=== PATIENT | male | born 1970 | race Caucasian/White ===

== ENCOUNTER 2019-03-18 15:13 | Outpatient (REF) | payer OTHER, SELFPAY ==
[2019-03-18 20:07] LABS: HCT 44.2 % (40.0-50.0); HGB 14.9 g/dL (13.5-17.5); Mean Corp. HGB Concentration 33.7 g/dL (32.0-36.0); Mean Corpuscular Volume 88.9 fL (80-95); Platelet Count 368 x1000/uL (130-400); RBC 4.97 m/cumm (4.50-6.00); RBC Distribution Width 13.6 % (11.8-14.1); White Blood Cell Count 5.52 k/cumm (4.4-10.8)
[2019-03-18 20:18] LABS: PHENYTOIN (DILANTIN) 9.8 ug/mL (10.0-20.0)
[2019-03-18 20:28] LABS: ALT 32 U/L (12-78); AST 26 U/L (15-37); Albumin 3.9 g/dL (3.4-5.0); Alkaline Phosphatase 161 U/L (46-116); Anion Gap 9.2 mmol/L (3-11); BUN 9 mg/dL (7-18); Bilirubin, Total 0.2 mg/dL (0.2-1.0); CO2 27.8 mmol/L (21.0-32.0); CREATININE 0.73 mg/dL (0.70-1.30); Calcium 9.3 mg/dL (8.5-10.1); Chloride 102 mmol/L (98-107); Glucose 98 mg/dL (70-100); Potassium 4.5 mmol/L (3.5-5.1); Sodium 139 mmol/L (136-145); Total Protein 7.3 g/dL (6.4-8.2)
== END 2019-03-18 15:33 ==
LOC: NCHCN 15:13
PROVIDERS: PCP Internal Medicine; Visit Provider Internal Medicine
DX: Z00.00 Encounter for general adult medical examination without abnormal findings (principal); G40.909 Epilepsy, unspecified, not intractable, without status epilepticus; Z51.81 Encounter for therapeutic drug level monitoring; Z79.899 Other long term (current) drug therapy
CPT/HCPCS: 80053; 85027; 80185

== ENCOUNTER 2019-10-30 09:47 | Outpatient (REF) | payer OTHER, SELFPAY ==
[2019-11-01 14:07] LABS: HSV Type 1 Ab, IgG Positive (Negative); HSV Type 2 Ab, IgG Equivocal (Negative)
== END 2019-10-30 10:07 ==
LOC: NCHCN 09:47
PROVIDERS: PCP Internal Medicine; Visit Provider Physician Assistant
DX: B00.9 Herpesviral infection, unspecified (principal); Z11.3 Encounter for screening for infections with a predominantly sexual mode of transmission
CPT/HCPCS: 86695; 86696

== ENCOUNTER 2020-05-28 17:26 | Outpatient (REF) | payer OTHER, SELFPAY ==
[2020-05-28 19:26] LABS: HCT 42.5 % (40.0-50.0); HGB 14.6 g/dL (13.5-17.5); Mean Corp. HGB Concentration 34.4 g/dL (32.0-36.0); Mean Corpuscular Hemoglobin 31.1 pg (27.0-33.0); Mean Corpuscular Volume 90.4 fL (80-95); Mean Platelet Volume 10.2 fL (8.0-11.0); Platelet Count 292 x1000/uL (130-400); RBC Distribution Width 13.4 % (11.8-14.1); White Blood Cell Count 6.26 k/cumm (4.4-10.8)
[2020-05-28 19:44] LABS: ALT 30 U/L (16-63); AST 22 U/L (15-37); Albumin 4.2 g/dL (3.4-5.0); Alkaline Phosphatase 107 U/L (46-116); Bilirubin, Direct 0.11 mg/dL (0.00-0.20); Bilirubin, Total 0.3 mg/dL (0.2-1.0); Total Protein 7.1 g/dL (6.4-8.2)
== END 2020-05-28 17:46 ==
LOC: NCHCN 17:26
PROVIDERS: PCP Internal Medicine; Visit Provider Internal Medicine
DX: G40.909 Epilepsy, unspecified, not intractable, without status epilepticus (principal); Z00.00 Encounter for general adult medical examination without abnormal findings; Z51.81 Encounter for therapeutic drug level monitoring
CPT/HCPCS: 80076; 85027; 80185

== ENCOUNTER 2021-06-08 09:14 | Outpatient (CLI) | payer OTHER, SELFPAY ==
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
== END 2021-06-08 09:34 ==
PROVIDERS: PCP Internal Medicine; Visit Provider Nurse Practitioner Family
DX: M79.641 Pain in right hand (principal); S67.21XA Crushing injury of right hand, initial encounter; S62.336A Displaced fracture of neck of fifth metacarpal bone, right hand, initial encounter for closed fracture
CPT/HCPCS: 73130

== ENCOUNTER 2021-06-15 07:36 | Outpatient (CLI) | payer OTHER, SELFPAY ==
--- NOTE | 2021-06-15 13:00 | DI.RAD_ITS ---
Exam(s) XR HAND RT COMPLETE EXAM: XR HAND RT COMPLETE CLINICAL HISTORY: follow up fracture. TECHNIQUE: 2D digital imaging was performed. COMPARISON: CR XR HAND RT COMPLETE from 06/08/2021 FINDINGS: BONES: There has been no change in alignment of the fracture involving the right 5th metacarpal bone. No bony destructive lesion is seen. JOINTS: No dislocation present. SOFT TISSUE: Normal. IMPRESSION: Stable right 5th metacarpal fracture. DATA REPOSITORY: RADIATION DOSE DELIVERED:
== END 2021-06-15 07:37 | disposition home or self-care (01) ==
PROVIDERS: PCP Internal Medicine; Visit Provider Physician Assistant Surgical
DX: S62.336D Displaced fracture of neck of fifth metacarpal bone, right hand, subsequent encounter for fracture with routine healing (principal)
CPT/HCPCS: 73130

== ENCOUNTER 2021-07-12 09:46 | Outpatient (CLI) | payer OTHER, SELFPAY ==
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
== END 2021-07-12 09:47 | disposition home or self-care (01) ==
LOC: DIORS 09:46
PROVIDERS: PCP Internal Medicine; Visit Provider Physician Assistant
DX: S62.336D Displaced fracture of neck of fifth metacarpal bone, right hand, subsequent encounter for fracture with routine healing (principal); X58.XXXD Exposure to other specified factors, subsequent encounter
CPT/HCPCS: 73130

== ENCOUNTER 2021-08-23 10:28 | Outpatient (CLI) | payer OTHER, SELFPAY ==
--- NOTE | 2021-08-23 10:15 | DI.RAD_ITS ---
Exam(s) XR HAND RT COMPLETE EXAM: XR HAND RT COMPLETE INDICATION: right boxers fracture. COMPARISON: CR XR HAND RT COMPLETE from 07/12/2021 TECHNIQUE: 2D digital imaging was performed. FINDINGS: There has been continued healing of the 5th metacarpal fracture. The alignment is unchanged. No new abnormalities are seen. DATA REPOSITORY: RADIATION DOSE DELIVERED:
== END 2021-08-23 10:29 | disposition home or self-care (01) ==
LOC: DIORS 10:28
PROVIDERS: PCP Internal Medicine; Referring Provider Internal Medicine; Visit Provider Physician Assistant
DX: S62.336D Displaced fracture of neck of fifth metacarpal bone, right hand, subsequent encounter for fracture with routine healing (principal)
CPT/HCPCS: 73130

== ENCOUNTER 2021-08-23 19:30 | Outpatient (REF) | payer OTHER, SELFPAY ==
[2021-08-23 20:27] LABS: Abs Immature Grans 0.02 10^3/uL (0.0-0.06); Absolute Basophil Count 0.04 10^3/uL (0.0-0.2); Absolute Eosinophil Count 0.11 10^3/uL (0.0-0.7); Absolute Lymphocyte Count 1.88 10^3/uL (1.2-3.4); Absolute Monocyte Count 0.47 10^3/uL (0.1-0.8); Basophils % 0.6; Eosinophils % 1.8; HCT 43.9 % (40.0-50.0); HGB 15.1 g/dL (13.5-17.5); Immature Grans % 0.3; Lymphocytes % 30.2; MCH 31.1 pg (27.0-33.0); MCHC 34.4 % (32.0-36.0); MCV 90.3 fL (80-95); MPV 10.1 fL (8.0-11.0); Monocytes % 7.6; Neutrophils % 59.5; Nucleated RBC 0 %; Platelet Count 343 10^3/uL (130-400); RBC 4.86 10^6/uL (4.36-5.78); RDW 12.9 % (11.8-14.1); RDW-SD 43.1 fL; WBC 6.22 10^3/uL (4.4-10.8)
[2021-08-23 20:50] LABS: PHENYTOIN (DILANTIN) 14.6 ug/mL (10.0-20.0)
[2021-08-23 20:54] LABS: ALT 35 U/L (16-63); AST 19 U/L (15-37); Albumin 4.3 g/dL (3.4-5.0); Alkaline Phosphatase 110 U/L (46-116); Anion Gap 7.1 mmol/L (3-11); BUN 10 mg/dL (7-18); Bilirubin, Total 0.2 mg/dL (0.2-1.0); CO2 28.9 mmol/L (21.0-32.0); CREATININE 0.7 mg/dL (0.70-1.30); Calcium 8.6 mg/dL (8.5-10.1); Chloride 105 mmol/L (98-107); Glucose 78 mg/dL (74-106); Potassium 4.4 mmol/L (3.5-5.1); Sodium 141 mmol/L (136-145); Total Protein 7.4 g/dL (6.4-8.2)
== END 2021-08-23 19:31 | disposition home or self-care (01) ==
LOC: NCHCN 19:30
PROVIDERS: PCP Internal Medicine; Visit Provider Internal Medicine
DX: Z00.00 Encounter for general adult medical examination without abnormal findings (principal); G40.909 Epilepsy, unspecified, not intractable, without status epilepticus
CPT/HCPCS: 80053; 80185; 85025

== ENCOUNTER 2022-10-19 16:30 | Outpatient (REF) | payer OTHER, SELFPAY ==
[2022-10-19 19:58] LABS: Abs Immature Grans 0.02 10^3/uL (0.0-0.06); Absolute Basophil Count 0.04 10^3/uL (0.0-0.2); Absolute Eosinophil Count 0.09 10^3/uL (0.0-0.7); Absolute Lymphocyte Count 1.82 10^3/uL (1.2-3.4); Absolute Monocyte Count 0.52 10^3/uL (0.1-0.8); Absolute Neutrophil Count 5.46 10^3/uL (1.2-6.7); Basophils % 0.5; Eosinophils % 1.1; HCT 42.8 % (40.0-50.0); HGB 14.9 g/dL (13.5-17.5); Immature Grans % 0.3; Lymphocytes % 22.9; MCH 31.2 pg (27.0-33.0); MCHC 34.8 % (32.0-36.0); MCV 90 fL (80-95); MPV 9.7 fL (8.0-11.0); Monocytes % 6.5; Neutrophils % 68.7; Platelet Count 344 10^3/uL (130-400); RBC 4.77 10^6/uL (4.36-5.78); RDW 12.5 % (11.8-14.1); RDW-SD 41.4 fL; WBC 7.95 10^3/uL (4.4-10.8)
[2022-10-19 20:26] LABS: ALT 33 U/L (16-63); AST 23 U/L (15-37); Albumin 4.3 g/dL (3.4-5.0); Alkaline Phosphatase 108 U/L (46-116); Anion Gap 6.4 mmol/L (3-11); BUN 17 mg/dL (7-18); Bilirubin, Total 0.3 mg/dL (0.2-1.0); CO2 29.6 mmol/L (21.0-32.0); CREATININE 0.8 mg/dL (0.70-1.30); Calcium 8.9 mg/dL (8.5-10.1); Chloride 102 mmol/L (98-107); Estimated GFR 105.17 (mL/min/1.73m2); Glucose 130 mg/dL (74-106); Potassium 3.8 mmol/L (3.5-5.1); Sodium 138 mmol/L (136-145); Total Protein 7.6 g/dL (6.4-8.2)
[2022-10-19 20:32] LABS: PHENYTOIN (DILANTIN) 12.9 ug/mL (10.0-20.0)
== END 2022-10-19 16:31 | disposition home or self-care (01) ==
LOC: NCHCN 16:30
PROVIDERS: PCP Internal Medicine; Visit Provider Internal Medicine
DX: R63.5 Abnormal weight gain (principal); Z00.00 Encounter for general adult medical examination without abnormal findings; G40.909 Epilepsy, unspecified, not intractable, without status epilepticus; Z79.899 Other long term (current) drug therapy; Z51.81 Encounter for therapeutic drug level monitoring
CPT/HCPCS: 80053; 80185; 85025

== ENCOUNTER 2023-11-22 16:03 | Outpatient (REF) | payer OTHER, SELFPAY ==
[2023-11-22 20:24] LABS: HCT 44.6 % (40.0-50.0); HGB 15.7 g/dL (13.5-17.5); MCH 31.8 pg (27.0-33.0); MCHC 35.2 % (32.0-36.0); MCV 90 fL (80-95); MPV 9.7 fL (8.0-11.0); Platelet Count 330 10^3/uL (130-400); RBC 4.94 10^6/uL (4.36-5.78); RDW 12.9 % (11.8-14.1); RDW-SD 43.3 fL; WBC 5.91 10^3/uL (4.4-10.8)
[2023-11-22 20:36] LABS: ALT 31 U/L (16-63); AST 23 U/L (15-37); Albumin 4.3 g/dL (3.4-5.0); Alkaline Phosphatase 99 U/L (46-116); Anion Gap 10.9 mmol/L (3-11); BUN 10 mg/dL (7-18); Bilirubin, Total 0.3 mg/dL (0.2-1.0); CO2 26.1 mmol/L (21.0-32.0); CREATININE 0.7 mg/dL (0.70-1.30); Chloride 103 mmol/L (98-107); Estimated GFR 108.82 (mL/min/1.73m2); Glucose 100 mg/dL (74-106); Sodium 140 mmol/L (136-145); Total Protein 7.6 g/dL (6.4-8.2)
[2023-11-22 20:40] LABS: PHENYTOIN (DILANTIN) 14.4 ug/mL (10.0-20.0)
[2023-11-22 20:47] LABS: Calculated LDL 115 mg/dL (<100); Cholesterol 205 mg/dL (<200); HDL Cholesterol 74 mg/dL (40-60); Triglyceride 81 mg/dL (<150)
[2023-11-23 21:20] LABS: PSA, Screening 1.7 ng/mL (<=3.5)
== END 2023-11-22 16:04 | disposition home or self-care (01) ==
LOC: NCHCN 16:03
PROVIDERS: PCP Internal Medicine; Visit Provider Internal Medicine
DX: Z12.5 Encounter for screening for malignant neoplasm of prostate (principal); Z13.1 Encounter for screening for diabetes mellitus; I10 Essential (primary) hypertension
CPT/HCPCS: 80053; 80061; 84153; 85027; 80185; 83036

== ENCOUNTER 2025-02-27 17:58 | Outpatient (REF) | payer OTHER, SELFPAY ==
[2025-02-27 19:36] LABS: HCT 45.2 % (40.0-50.0); HGB 15.7 g/dL (13.5-17.5); MCH 31.6 pg (27.0-33.0); MCHC 34.7 % (32.0-36.0); MCV 91 fL (80-95); MPV 9.9 fL (8.0-11.0); Platelet Count 333 10^3/uL (130-400); RBC 4.97 10^6/uL (4.36-5.78); RDW 13.3 % (11.8-14.1); RDW-SD 44.9 fL; WBC 6.68 10^3/uL (4.4-10.8)
[2025-02-27 20:03] LABS: ALT 35 U/L (16-63); AST 20 U/L (15-37); Albumin 4.1 g/dL (3.4-5.0); Alkaline Phosphatase 118 U/L (46-116); Anion Gap 7.6 mmol/L (3-11); BUN 13 mg/dL (7-18); Bilirubin, Total 0.3 mg/dL (0.2-1.0); CO2 29.4 mmol/L (21.0-32.0); CREATININE 0.8 mg/dL (0.70-1.30); Calcium 8.9 mg/dL (8.5-10.1); Chloride 105 mmol/L (98-107); Estimated GFR 103.87 (mL/min/1.73m2); Glucose 116 mg/dL (74-106); Potassium 4.1 mmol/L (3.5-5.1); Sodium 142 mmol/L (136-145); Total Protein 7.4 g/dL (6.4-8.2)
[2025-02-27 20:10] LABS: PHENYTOIN (DILANTIN) 14.4 ug/mL (10.0-20.0)
[2025-03-03 09:17] LABS: Hepatitis C Ab w Rflx HCV PCR Negative (Negative)
== END 2025-02-27 17:59 | disposition home or self-care (01) ==
LOC: NCHCN 17:58
PROVIDERS: PCP Internal Medicine; Visit Provider Internal Medicine
DX: G40.909 Epilepsy, unspecified, not intractable, without status epilepticus (principal); Z11.4 Encounter for screening for human immunodeficiency virus [HIV]
CPT/HCPCS: 80053; 85027; 86803; 80185